=== PATIENT | male | born 1955 | race Caucasian/White ===

== ENCOUNTER 2017-11-26 09:04 | Observation (INO) | payer OTHER ==
[2017-11-26] MEDS ORDERED: ONDANSETRON 4 MG/2 ML VIAL IVP ONE (09:15)
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
[2017-11-26] MEDS ORDERED: LET GEL TOPICAL 1 EA SYR TP ONE ×2 (09:16→09:28)
[2017-11-26 09:46] LABS: PLATELET COUNT 227 10^3/uL (150-400)
[2017-11-26] MEDS ORDERED: IOPAMIDOL (ISOVUE-300) 100 ML BTL ONE (09:53)
[2017-11-26 09:55] LABS: INR 0.96 (0.83-1.16)
[2017-11-26] MEDS ORDERED: ACETAMINOPHEN 500 MG TAB PO ONE (12:03)
[2017-11-26] MEDS ORDERED: ONDANSETRON 4 MG/2 ML VIAL IVP PRN (12:04)
[2017-11-26] MEDS ORDERED: ONDANSETRON DISINTEGRATING 4 MG TAB PO PRN (12:04)
[2017-11-26] MEDS ORDERED: HYDROCODONE/APAP 5/325 TAB PO PRN (12:04)
[2017-11-26] MEDS ORDERED: NALOXONE HCL 0.4 MG/ML INJ IVP PRN (12:04)
[2017-11-26] MEDS ORDERED: D5W 1/2 NS W/ 20 KCl/L 1,000 ML IV SCH (12:15)
[2017-11-26] MEDS ORDERED: ceFAZolin 3 GM in D5W 100 ML IV ONE ×2 (12:21→14:15)
[2017-11-26] MEDS ORDERED: ACETAMINOPHEN 500 MG TAB ONE (12:21)
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
--- NOTE | 2017-11-26 17:21 | SOAPPROG ---
SOAP Progress Note Assessment/Plan: Assessment: ultrasound with epididymal cyst - can follow up at [facility] with no ligamentous injury. I irrigated the wound with 100 cc of saline and performed exploration at bedside. Tolerated well. No foreign body found Plan: 11/26/17 17:20 Objective: Vital Signs Temp Pulse Resp BP Pulse Ox 36.9 C 84 16 145/84 H 93 11/26/17 16:04 11/26/17 16:04 11/26/17 16:04 11/26/17 16:04 11/26/17 16:04 11/25/17 11/26/17 11/27/17 05:59 05:59 05:59 Intake Total 250 Balance 250 PT 13.0 SEC (12.0-15.0) 11/26/17 09:30 INR 0.96 (0.83-1.16) 11/26/17 09:30 ICD10 Worksheet Patient Problems: Problems Problem Status Onset Blunt head trauma Acute Multiple trauma Acute
[2017-11-26] MEDS: ACETAMINOPHEN 325 MG TAB PO PRN ×2 (18:34→23:02)
[2017-11-26] MEDS ORDERED: D50W 25 GM/50 ML VIAL IVP PRN (21:00)
[2017-11-26] MEDS ORDERED: 1/2 NS 1,000 ML IV SCH (21:00)
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
[2017-11-27] MEDS: ACETAMINOPHEN 325 MG TAB PO PRN (06:23)
[2017-11-27 07:49] VITALS: BP 122/79
[2017-11-27] MEDS ORDERED: INSULIN LISPRO 100 UNIT/ML SC SCH (08:00)
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
[2017-11-27] MEDS ORDERED: BACITRACIN ZINC 14.2 GM OINTTUBE TP ONE (10:21)
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
--- NOTE | 2017-11-27 12:15 | ASMTCMCOM ---
CM Note CM Note Notes: Pt medically stable for d/c. Pt provided clothing and cab voucher to opthalmology appt which is scheduled now. Pt reports he has a ride from opthalmology. Date Signed: 11/27/2017 12:15 PM Electronically Signed By:NATHALIA Mckeon
== END 2017-11-27 11:38 | disposition home or self-care (01) ==
LOC: EDUNIT# → INTOOBSV 11:45 → F3N 13:22
PROVIDERS: ADMIT Surgery; ATTEND Surgery
DX: S02.32XA Fracture of orbital floor, left side, initial encounter for closed fracture (principal); S02.2XXA Fracture of nasal bones, initial encounter for closed fracture; S01.511A Laceration without foreign body of lip, initial encounter; S80.912A Unspecified superficial injury of left knee, initial encounter; E11.9 Type 2 diabetes mellitus without complications; I10 Essential (primary) hypertension; E78.5 Hyperlipidemia, unspecified; F17.200 Nicotine dependence, unspecified, uncomplicated; Z96.651 Presence of right artificial knee joint; Z91.14 Patient's other noncompliance with medication regimen; V43.22XA Person on outside of car injured in collision with other type car in nontraffic accident, initial encounter; Y92.524 Gas station as the place of occurrence of the external cause
CPT/HCPCS: 70450; 70486; 71260; 72125; 73721; 74177; 76870; 92523; 96374; 96375; 97161; 97165; 99291; G0378; G0480; J0690; J1815; J2270; J2405; Q9967